=== PATIENT | male | born 1940 | race Asian ===

== ENCOUNTER → 2019-05-10 | Outpatient (CLI) | payer MEDICARE | END | disposition home or self-care (01) | LOC: CFH 09:04 | PROVIDERS: ATTEND Internal Medicine Cardiovascular Disease | DX: I08.8 Other rheumatic multiple valve diseases (principal); I25.2 Old myocardial infarction; I25.10 Atherosclerotic heart disease of native coronary artery without angina pectoris | CPT/HCPCS: 78452; 93017; 93306; A9502 ==

== ENCOUNTER 2020-03-07 14:23 | Emergency (ER) | payer MEDICARE ==
[~2020-03-07] VITALS: Ht 177.8 cm; Wt 65.0 kg
--- NOTE | 2020-03-07 15:30 | NUR ---
PT TO IMAGING AT THIS TIME
[2020-03-07 15:37] LABS: BASOPHILS # (AUTO) 0.01 x10^3/uL (0-0.1); BASOPHILS % (AUTO) 0 % (0-1); EOSINOPHILS # (AUTO) 0.09 x10^3/uL (0-0.4); EOSINOPHILS % (AUTO) 1 % (1-7); LYMPHOCYTES # (AUTO) 1.66 x10^3/uL (1-3.4); LYMPHOCYTES % (AUTO) 14 % (22-44); MD NO; MEAN CORPUSCULAR HEMOGLOBIN 32.4 pg (27.5-34.5); MEAN CORPUSCULAR HGB CONC 33.5 g/dL (33.2-36.2); MEAN PLATELET VOLUME 7.9 fL (7.4-10.4); MONOCYTES # (AUTO) 1.04 x10^3/uL (0.2-0.8); MONOCYTES % (AUTO) 9 % (2-9); NEUTROPHILS % (AUTO) 76 % (42-75); PLATELET COUNT 170 x10^3/uL (130-400); RED BLOOD COUNT 4.29 x10^6/uL (4.38-5.82); RED CELL DISTRIBUTION WIDTH 13.3 % (9.4-14.8)
[2020-03-07 15:44] LABS: ALANINE AMINOTRANSFERASE 42 U/L (12-78); ALBUMIN 3.3 g/dL (3.4-5.0); ANION GAP 7 mmol/L (5-15); CALCIUM 9.6 mg/dL (8.5-10.1); CHLORIDE 104 mmol/L (98-107); CREATININE 1.41 mg/dL (0.7-1.3)
[2020-03-07 15:47] LABS: ALKALINE PHOSPHATASE 89 U/L (45-117); TOTAL PROTEIN 8.6 g/dL (6.4-8.2)
[2020-03-07] MEDS ORDERED: KETAMINE 100 MG/ML, 5ML IV ONE (16:00)
[2020-03-07] MEDS ORDERED: PROPOFOL 10 MG/ML, 20ML IVPush ONE (16:00)
[2020-03-07 16:41] LABS: MICROSCOPIC AUTO
[2020-03-07 17:03] VITALS: BP 111/69
--- NOTE | 2020-03-07 17:36 | NUR ---
PT AMBULATED IN BIRD, PT WITH STEADY GAIT, NO ASSIST REQUIRED
== END 2020-03-07 18:01 | disposition home or self-care (01) ==
LOC: ED 16:48
DX: R41.0 Disorientation, unspecified (principal); R53.1 Weakness; R47.89 Other speech disturbances; R32 Unspecified urinary incontinence; R50.9 Fever, unspecified; I45.10 Unspecified right bundle-branch block; Z86.73 Personal history of transient ischemic attack (TIA), and cerebral infarction without residual deficits
CPT/HCPCS: 36415; 70450; 71045; 80053; 81001; 83605; 84145; 85025; 87040; 87077; 87086; 87186; 93005; 99285